=== PATIENT | female | born 1995 | race Caucasian/White ===

== ENCOUNTER 2018-08-17 00:21 | Emergency (ER) | payer MEDICAID ==
[~2018-08-17] VITALS: Ht 154.9 cm; Wt 72.6 kg
[2018-08-17 00:32] VITALS: Ht 154.9 cm; Wt 72.6 kg
[2018-08-17 02:10] VITALS: BP 101/59
== END 2018-08-17 02:10 | disposition home or self-care (01) ==
LOC: ED 00:21
DX: S93.602A Unspecified sprain of left foot, initial encounter (principal); W50.0XXA Accidental hit or strike by another person, initial encounter; Y93.39 Activity, other involving climbing, rappelling and jumping off; Y92.34 Swimming pool (public) as the place of occurrence of the external cause; Y99.8 Other external cause status
CPT/HCPCS: Q0092